=== PATIENT | male | born 1965 | race Caucasian/White ===

== ENCOUNTER → 2016-11-13 | Outpatient (CLI) | payer BC ==
[~2016-11-13] MED LIST: FLUT0.15 NAE; HYDR-5688 PO
== END | disposition home or self-care (01) ==
LOC: C.LAB 09:14
DX: Z13.220 Encounter for screening for lipoid disorders (principal); Z13.29 Encounter for screening for other suspected endocrine disorder

== ENCOUNTER → 2016-11-22 | Outpatient (CLI) | payer BC | END | disposition home or self-care (01) | LOC: C.RDSM 13:41 | PROVIDERS: ATTEND Physical Medicine & Rehabilitation Sports Medicine | DX: M17.2 Bilateral post-traumatic osteoarthritis of knee (principal) ==

== ENCOUNTER 2017-04-21 20:44 | Emergency (ER) | payer BC ==
[~2017-04-21] VITALS: Ht 167.6 cm; Wt 76.6 kg
[2017-04-21 21:16] VITALS: TEMP 36.6; Ht 167.6 cm; Wt 76.6 kg
--- NOTE | 2017-04-21 21:55 | DIAGNOSTIC IMAGING REPORT ---
LEFT SHOULDER MIN 2 VIEWS ROUTINE CLINICAL HISTORY: Left shoulder pain following fall. COMPARISON: None FINDINGS: Alignment of the left glenohumeral joint is anatomic. There is 9 mm of elevation of the distal left clavicle with respect to the acromion. No acute fracture is identified. IMPRESSION: 1. Left acromioclavicular joint separation, likely grade III. 2. No acute fracture. Electronically signed by: Abisai Ozuna M.D. 04/21/2017 9:53 PM Dictated Date/Time: 04/21/2017 9:52 PM
[2017-04-21] MEDS ORDERED: FLUT0.15 NAE (22:00)
--- NOTE | 2017-04-21 22:13 | EMERGENCY ROOM VISIT NOTE ---
ED Visit Note First contact with patient: 22:09 CHIEF COMPLAINT: Shoulder pain HISTORY OF PRESENT ILLNESS: This 52-year-old male patient presents to the emergency department complaining of pain in the left shoulder that started around 7:30 PM today. Patient states he was playing softball and dove to catch a ball, landing directly onto the right shoulder. There is significant limitation of motion of the arm because of the pain. The pain is moderate, constant and increases with motion of the hand and arm. The patient states the pain is throbbing and 7/10. The patient has taken no medications for relief of the pain. No previous significant previous shoulder disease or injury. No numbness or tingling. He denies any neck or back pain. No chest pain or shortness of breath. No abdominal pain or nausea/vomiting. No cough. He is right-hand dominant. REVIEW OF SYSTEMS: A 6 system review of systems was performed with positives and pertinent negatives in the HPI. ALLERGIES: See chart MEDICATIONS: See chart PMH: See chart SOCIAL HISTORY: See chart PHYSICAL EXAM: Vital Signs: Reviewed nurse's notes, vital signs stable. GENERAL : Pleasant and cooperative, in no acute distress, but appears to be in pain, well-developed, well-nourished. MUSCULOSKELETAL: There is no deformity in the contour of the left shoulder and there are no halina deformities noted. There is no sulcus sign. There is tenderness over the lateral and anterior shoulder over the AC joint. The patient's range of motion is significantly limited due to pain. Supraspinatus strength 5/5. There is lateral clavicle tenderness. No tenderness of the humerus, elbow, wrist, or hand. Director [employer] strength 5/5. Radial pulse 2+. NECK: No tenderness to palpation over the cervical spine. Full range of motion of the neck without pain. HEART: Regular rate and rhythm without murmurs gallops or rubs. LUNGS: Clear to auscultation bilaterally without wheezes, rales or rhonchi. No accessory muscle use. No retractions. NEURO: The patient is alert and oriented to person, place, and time. Normal sensation to light and sharp touch. Capillary refill less than 2 seconds. IMAGING: LEFT SHOULDER MIN 2 VIEWS ROUTINE CLINICAL HISTORY: Left shoulder pain following fall. COMPARISON: None FINDINGS: Alignment of the left glenohumeral joint is anatomic. There is 9 mm of elevation of the distal left clavicle with respect to the acromion. No acute fracture is identified. IMPRESSION: 1. Left acromioclavicular joint separation, likely grade III. 2. No acute fracture. EMERGENCY DEPARTMENT COURSE: I examined the patient. An X-ray of the left clavicle and shoulder was reviewed by myself and radiologist and shows a grade 3 left AC joint separation. I discussed with Dr. Quintana, orthopedics, who agrees with plan for sling and follow up in clinic within the next week. Patient was updated on all results and plan for discharge with orthopedic follow -up, he verbalized understanding. Patient discharged home in stable condition. Current/Historical Medications Scheduled Fluticasone Propionate (Nasal) (Flonase Allergy Relief), 1 SPRAY JOSE DAILY Scheduled PRN Hydrocodone/Acetaminophen 5MG/325MG ([place] 5MG/325MG), 1-2 TABLET PO Q6H PRN for Pain Allergies Coded Allergies: No Known Allergies (Unverified , 04/21/17) Vital Signs Date Time Temp Pulse Resp B/P (MAP) Pulse Ox O2 Delivery O2 Flow Rate FiO2 04/22/17 00:20 81 16 131/91 97 04/21/17 23:10 81 16 131/91 97 Room Air 04/21/17 21:16 36.6 103 18 141/89 96 Room Air Medications Administered Medications (Trade) Dose Ordered Sig/Kurtis Route Start Time Stop Time Status Last Admin Dose Admin Acetaminophen/ Hydrocodone Bitart ([place] 5/325 Tab) 1 tab NOW STAT PO 04/21/17 22:54 04/21/17 22:56 DC 04/21/17 23:08 1 TAB Acetaminophen/ Hydrocodone Bitart ([place] 5/325mg Home Pack) 1 homepack UD ONCE PO 04/21/17 23:00 04/21/17 23:01 DC 04/21/17 23:10 1 HOMEPACK Departure Information Impression Primary Impression: Separation of left acromioclavicular joint, type 3 Dispostion Home / Self-Care Condition GOOD Prescriptions Hydrocodone/Acetaminophen 5MG/325MG ([place] 5MG/325MG) Tab 1-2 TABLET PO Q6H Y for Pain, #20 TAB For Initial Treatment Prov: Katelin Chávez CRNP 04/22/17 Referrals [place] Harry Jr,D.O. (PCP) Yoel Michele M.D. Patient Instructions My [facility], Treatment for Shoulder Separation Additional Instructions With the sling on your left arm for comfort to stabilize your left shoulder joint. [place] one to 2 tablets every 6 hours as needed for severe pain. This is a narcotic, do not drive, drink alcohol, or operate machinery while you're taking it. You may also take ibuprofen 600 mg every 6-8 hours as needed for pain. Apply ice to the shoulder to help reduce inflammation and pain. Follow-up with orthopedics within the next week, call for an appointment. Problem Qualifiers Primary Impression: Separation of left acromioclavicular joint, type 3 Encounter type: initial encounter Qualified Codes: S43.102A - Unspecified dislocation of left acromioclavicular joint, initial encounter
[2017-04-21] MEDS ORDERED: HYDROCODONE/ACETAMOPHEN 5/325MG TAB PO STA (22:54)
[2017-04-21] MEDS ORDERED: NORCO 5/325MG HOME PACK PO ONE (23:00)
[2017-04-22] MEDS ORDERED: HYDR-5688 PO (00:13)
[2017-04-22 00:20] VITALS: BP 131/91; PULSE 81; O2SAT 97
== END 2017-04-22 00:20 | disposition home or self-care (01) ==
LOC: C.EDB 20:45 → C.EDD 04-22 00:20
DX: S43.102A Unspecified dislocation of left acromioclavicular joint, initial encounter (principal); W19.XXXA Unspecified fall, initial encounter; Y93.64 Activity, baseball

== ENCOUNTER → 2017-06-09 | Outpatient (CLI) | payer BC ==
--- NOTE | 2017-06-09 16:14 | DIAGNOSTIC IMAGING REPORT ---
LEFT SHOULDER 3 VIEWS HISTORY: LEFT SHOULDER PAIN COMPARISON: Left shoulder 04/21/2017. FINDINGS: No acute fracture or dislocation within left shoulder. Slight improved displacement of the grade II/III left acromioclavicular separation. This now demonstrates approximately 6 mm of superior displacement, previously measuring approximately 11 mm. Soft tissues are unremarkable. No fractures within the left clavicle. IMPRESSION: Slight improvement in the displacement of the left grade II/III acromioclavicular separation. No fractures. Electronically signed by: Greyson Fleming M.D. 06/09/2017 4:13 PM Dictated Date/Time: 06/09/2017 4:11 PM
== END | disposition home or self-care (01) ==
LOC: C.RDSM 16:00
PROVIDERS: ATTEND Physician Assistant
DX: M25.512 Pain in left shoulder (principal)